=== PATIENT | male | born 1945 | race African-American/Black ===

== ENCOUNTER → 2017-01-07 | Outpatient (CLI) | payer OTHER ==
[~2017-01-07] MED LIST: AMLODIPINE BESY10 MG PO; ATENOLOL-CHLORT1 TA2 PO; LORTAB 7.5-3251 EACH PO; PHENERGAN25 M1 PO
--- NOTE | ~2017-01-07 | CT2 ---
[facility] A Service of [facility] RADIOLOGY TEXT RESULTS PATIENT: RASHMI THOMPSON LOCATION: [facility] : 49 UNIT #: [id number] AGE: [address]: Julius Becker MD SEX: M ORDER DR: [id number] [facility]. [place], [place] [address] [id number] O MR#: [id number] Acc #: [id number] NAME: RASHMI THOMPSON. : 1945 SEX: M STUDY DATE/TIME: 01/07/2017 11:19 UNIT: CN ROOM: STUDY DESCRIPTION: CT Abd and Pelv W Cont Attending Physician: Julius Becker M.D. Referring Physician: Julius Becker M.D. Ordering Physician: Julius Becker M.D. Primary Care Physician: Sravan Tobias M.D. MEDICAL IMAGING REPORT This report is preliminary unless electronic signature is present EXAM CT of the abdomen and pelvis with contrast. INDICATION Follow up prostate cancer. Observation for metastatic disease. TECHNIQUE CT of the abdomen and pelvis was performed following the administration of oral and IV contrast. Coronal and sagittal reformatted images were obtained. This CT exam was performed with one or more of the following radiation dose reduction techniques: automatic exposure control, adjustment of mA and/or kV according to patient size, and iterative reconstruction. COMPARISON STUDIES Compared with 07/11/2015. FINDINGS The lung bases are clear. Cholecystectomy. Stable hepatic cysts. The spleen is unremarkable. The kidneys, adrenal glands, and pancreas are unremarkable. PELVIS: Prostatomegaly. Small fat-containing left inguinal hernia. Colon unremarkable. No evidence of lymphadenopathy. Bone windows demonstrate degenerative change in the lower lumbar spine. IMPRESSION No evidence for metastatic disease. Dictated by... [facility] A Service [facility] RADIOLOGY TEXT RESULTS PATIENT: RASHMI THOMPSON LOCATION: [facility] : 47 UNIT #: [id number] AGE: [address]: Julius Becker MD SEX: M ORDER DR: Reynaldo Ortega M.D. THIS IS AN ELECTRONICALLY VERIFIED REPORT Reynaldo Ortega M.D. at 01/07/2017 5:02 PM RASTA/hamilton TD: 01/07/2017 14:34 JOB #: [id number] MEDICAL IMAGING REPORT Page 1 of 1 COPY
--- NOTE | ~2017-01-07 | NM8 ---
[facility] A Service [facility] RADIOLOGY TEXT RESULTS PATIENT: RASHMI THOMPSON LOCATION: [facility] : 47 UNIT #: [id number] AGE: [address]: Julius Becker MD SEX: M ORDER DR: [id number] [facility]. [place], [place] [address] [id number] O MR#: [id number] Acc #: [id number] NAME: RASHMI THOMPSON : 1945 SEX: M STUDY DATE/TIME: 01/07/2017 12:53 UNIT: [facility] ROOM: STUDY DESCRIPTION: SC Bone or Joint Whole Body Attending Physician: Julius Becker M.D. Referring Physician: Julius Becker M.D. Ordering Physician: Julius Becker M.D. Primary Care Physician: Sravan Tobias M.D. MEDICAL IMAGING REPORT This report is preliminary unless electronic signature is present EXAM Whole-body bone scan. DATE OF EXAM 01/07/2017 HISTORY Order states prostate cancer. History sheet states increasing PSA. No musculoskeletal surgery. Prostate cancer diagnosed last month. No history of bone or joint disease. COMPARISON CT abdomen and pelvis 01/07/2017, and cervical spine radiographs 01/07/2017. TECHNIQUE The patient received 29.4 mCi technetium 99m MDP intravenously and anterior and posterior whole body scans are supplemented by spot images of the calvaria/cervical spine and thorax. FINDINGS The left lateral cervical skull spot image demonstrates increased uptake in the lower cervical region which is only faintly seen on the posterior whole-body projection. In correlation with the cervical spine radiographs, there is no visible osteoblastic lesion to suggest metastasis. This is presumably due to spondylosis or may degenerative disc disease which is most prominent radiographically from C3-4 through C6-7. Increased uptake in the left AC joint, right ankle, and patellofemoral compartments of the knees is certainly arthritic. There is no scintigraphic evidence of osseous metastatic disease. Kidneys [facility] A Service [facility] RADIOLOGY TEXT RESULTS PATIENT: RASHMI THOMPSON LOCATION: [facility] #: [id number] : 49 UNIT #: [id number] AGE: [address]: Julius Becker MD SEX: M ORDER DR: are visualized. IMPRESSION 1. No evidence of osseous metastatic disease. Dictated by... Soheila Nguyen M.D. THIS IS AN ELECTRONICALLY VERIFIED REPORT Soheila Nguyen M.D. at 01/09/2017 8:25 AM DOC/danny TD: 01/08/2017 15:05 JOB #: [id number] MEDICAL IMAGING REPORT Page 1 of 1 COPY
--- NOTE | ~2017-01-07 | CR61 ---
[facility] A Service of [facility] RADIOLOGY TEXT RESULTS PATIENT: RASHMI THOMPSON LOCATION: [facility] : 47 UNIT #: [id number] AGE: [address]: Julius Becker MD SEX: M ORDER DR: [id number] [facility] [address] [facility]. [place], [place] [address] [id number] O MR#: [id number] Acc #: [id number] NAME: RASHMI THOMPSON : 1945 SEX: M STUDY DATE/TIME: 01/07/2017 14:15 UNIT: [facility] ROOM: STUDY DESCRIPTION: CR Cervical Spine Min 5 Views Attending Physician: Julius Becker M.D. Referring Physician: Julius Becker M.D. Ordering Physician: Julius Becker M.D. Primary Care Physician: Sravan Tobias M.D. MEDICAL IMAGING REPORT This report is preliminary unless electronic signature is present EXAM Cervical spine series, 01/07/2017. HISTORY Hot spots. Neck pain, 1-month duration. Prior history of prostate cancer. TECHNIQUE AP, lateral, bilateral oblique and open-mouth odontoid views of the cervical spine are presented. FINDINGS Alignment normal. Vertebral body heights normal. Diffuse moderate intervertebral disc space narrowing from C3-C4 through C6-C7. Multilevel anterior osteophyte formations. Probable posterior osteophyte formation C3-C4, C4-C5, C5-C6. Facet joint relationships normal. No lytic or blastic lesion of bone is clearly seen. Please radionuclide bone scan for further assessment. C1-C2 relationship normal. Odontoid process intact. Prevertebral soft tissues unremarkable. Lung apices clear. Scattered dental hardware. If further assessment of spinal canal and neural foraminal contents would assist in management, consider MRI if patient is a candidate for CT. Dictated by... Sujit Graham M.D. THIS IS AN ELECTRONICALLY VERIFIED REPORT Sujit Graham M.D. at 01/08/2017 3:50 PM SALLY/hamilton TD: 01/08/2017 12:56 [facility] A Service of [facility] RADIOLOGY TEXT RESULTS PATIENT: RASHMI THOMPSON [id number] : 49 UNIT #: [id number] AGE: [address]: Julius Becker MD SEX: M ORDER DR: JOB #: [id number] MEDICAL IMAGING REPORT Page 1 of 1 COPY
[2017-01-07 10:35] LABS: POC - CREATININE 1.07 mg/dL (0.64-1.27); POC - GFR >60.0 mL/min (>60)
== END | disposition home or self-care (01) ==
LOC: CNUC 09:31
PROVIDERS: Urology
DX: C61 Malignant neoplasm of prostate (principal)
CPT/HCPCS: 72050; 74177; 78306; 82565; A9503; Q9967